=== PATIENT | male | born 1965 | race Caucasian/White ===

== ENCOUNTER 2024-07-05 05:46 | Emergency (ER) | payer BC, SELFPAY ==
--- NOTE | ~2024-07-05 | XR_ITS ---
EXAMINATION: XR CHEST CLINICAL INFORMATION: Chest pain COMPARISON: None available. TECHNIQUE: Frontal view of the chest was obtained. FINDINGS: There is no gross pneumothorax. Heart size is normal. Mild levoscoliosis of the thoracic spine with degenerative changes. No pleural effusion. No focal consolidation. XR/XR chest 1V IMPRESSION: No evidence of pneumonia. This study was presented today July 05, 2024 for interpretation. Stat results provided at this time as requested by referring provider.
--- NOTE | 2024-07-05 05:48 | ECG_ITS ---
Test Reason : CHEST PAIN Blood Pressure : / mmHG Vent. Rate : 103 BPM Atrial Rate : 103 BPM P-R Int : 152 ms QRS Dur : 096 ms QT Int : 356 ms P-R-T Axes : 077 092 065 degrees QTc Int : 466 ms Sinus tachycardia Rightward axis Borderline ECG No previous ECGs available Referred By: Generic ED Physician Electronically Signed By:Rigo Contreras
[2024-07-05 05:55] VITALS: BP 155/92; PULSE 102; RESP 20; TEMP 36.7; O2SAT 98; BMI 23.7
[2024-07-05 06:02] VITALS: PULSE 105
[2024-07-05 06:16] LABS: MANUAL DIFF FLAG NO
[2024-07-05 06:17] LABS: Basophils Absolute Auto 0.1 X10*3/uL (0.0-0.2); Eosinophils Absolute Auto 0.1 X10*3/uL (0.0-0.4); Eosinophils Percent Auto 1.6 % (0-4); Hematocrit 42.8 % (42.0-52.0); Hemoglobin 15.5 g/dl (14.0-18.0); Imm Gran Abs Auto 0.03 X10*3/uL (0.00-0.03); Imm Gran Pct Auto 0.5 % (0.0-0.4); Lymphocytes Absolute Auto 1.6 X10*3/uL (1.2-4.9); Lymphocytes Percent Auto 25.1 % (20-40); Mean Corpuscular HGB Conc 36.2 g/dl (31.0-36.0); Mean Corpuscular Hemoglobin 31.1 pg (27.0-33.0); Mean Corpuscular Volume 85.9 fL (80.0-98.0); Mean Platelet Volume 10.2 fL (9.4-12.4); Monocytes Absolute Auto 0.6 X10*3/uL (0.1-1.2); Neutrophils Absolute Auto 3.8 x10*3/uL (2.0-8.3); Neutrophils Percent Auto 61.8 % (45-73); Platelet Count 293 X10*3/uL (160-400); Red Blood Count 4.98 X10*6/uL (4.60-5.80); Red Cell Distribution Width 12.3 % (11.0-16.0); White Blood Count 6.2 X10*3/uL (4.8-10.8)
[2024-07-05 06:55] LABS: Alanine Aminotransferase 19 U/L (0-40); Albumin Level 4.5 g/dL (3.5-5.0); Alkaline Phosphatase 66 U/L (39-117); Anion Gap 17 (12-20); Aspartate Amino Transferase 17 U/L (5-37); Bilirubin Total 0.8 mg/dL (0.0-1.0); Blood Urea Nitrogen 7 mg/dL (9-16); Calcium 9.8 mg/dL (8.4-10.2); Carbon Dioxide 19 mmol/L (22-29); Chloride 107 mmol/L (96-108); Creatinine Clr Calc Pharmacy 102.7; Estimated Glomerular Filt Rate > 60; Glucose Random 135 mg/dL (60-115); Potassium 3.6 mmol/L (3.3-5.1); Sodium 139 mmol/L (135-145); Troponin-I High Sensitivity < 2.7 ng/L (<3.5-35.0)
--- NOTE | 2024-07-05 07:01 | ED.CHESTPAIN ---
HPI - Chest Pain General Chief Complaint: Chest Pain Stated Complaint: Chest pain Time Seen by Provider: 07/05/24 06:42 Source: patient Mode of arrival: ambulatory Limitations: no limitations History of Present Illness ED Provider: Radha ARGUELLO HPI narrative: This is a 59-year-old male currently a vape smoker with no known other medical history presenting to the emergency department for evaluation of episode of chest pain that occurred prior to arrival, he reports he was smoking his vape at the [facility] and having a few drinks afterwards he had a 12-15 second long episode of sharp left-sided chest pain associated with left upper extremity radiation, diaphoresis and overall feeling unwell. This resolved after 15 seconds and did not reoccur. He also describes very mild shortness of breath associated with the episode. No known personal or family cardiac history. No history of PE or DVT. At this time he denies any pain. Denies shortness of breath, nausea, vomiting, abdominal pain, jaw pain, headache, vision changes, dizziness and weakness. Related Data Allergies Allergy/AdvReac Type Severity Reaction Status Date / Time No Known Allergies Allergy Verified 07/05/24 05:58 Review of Systems Review of Systems: Yes all other systems are reviewed and are negative PMFSH Past Medical History Attestation statement: The following information was validated with the patient. Source: old records reviewed and nursing notes reviewed Social History Social History Alcohol intake: current Alcohol intake frequency: a few times a month Smoked in Last 30 Days: Yes Use of substances other than those prescribed or required for medical reasons: No Advance Directives: No Advance Directives Information Provided: Yes Do you have a plan to hurt others: No Plan Physical Exam Vital Signs: Vital Signs: Last Vital Signs Temp 98.1 F 07/05/24 05:55 Pulse 94 07/05/24 07:17 Resp 14 07/05/24 07:17 BP 140/80 H 07/05/24 07:17 Pulse Ox 97 07/05/24 07:17 O2 Del Method Room Air 07/05/24 07:17 BMI result Body Mass Index 23.7 vss Appearance: Alert.? Oriented X3.? No acute distress.? Head: Normocephalic, atraumatic, no step-offs or deformities Eyes: Pupils equal, round and reactive to light.? CVS: Normal heart rate and rhythm.? Pulses normal.? Respiratory: No respiratory distress.? Breath sounds normal.? Abdomen: Soft and nontender.? Skin: Skin warm and dry.? Normal skin color.? Normal skin turgor.? Extremities: No lower extremity edema.? No calf ttp. 5/5 strength to bilateral upper and lower extremities Back: No midline tenderness, no C-spine tenderness, full range of motion, no CVA tenderness bilaterally Neuro: Oriented X 3.? No motor deficit.? No sensory deficit. CN 2-12 intact Course Reevaluation(s) Reevaluation #1: CBC with no acute findings. Chemistry no acute findings requiring intervention. Trope negative x2. D-dimer negative with low suspicion for PE no indication for CTA. Patient is still having no pain. Feeling well. He tells me he will stop vaping. Will give him Cardiology follow-up. Vital signs stable and hemodynamically stable at time of discharge. Educated patient on diagnosis and treatment plan, answered all question, patient verbalizes understanding. At this time patient will be discharged home, advised to return with new or worsening symptoms. Educated on worrisome signs and symptoms and when to return. At this time I feel comfortable discharge home. 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 Now pain free. PE benign Hx and pe concerning for acs vs non cardiac related CP. Less likely PE, dissection, ARDS Plan- labs, imaging Differential Diagnosis Differential Diagnoses: The differential diagnosis associated with the presentation includes Hx and pe concerning for acs vs non cardiac related CP. Less likely PE, dissection, ARDS Admission/Observation Consideration of admission/observation: Escalation of care including admission/observation considered Unlikely Lab Data [facility] Lab Attestation statement: I reviewed the patient's lab results. 07/05/24 06:10 07/05/24 06:10 Labs: Lab Results 07/05/24 07/05/24 Range/Units 06:10 08:13 WBC 6.2 (4.8-10.8) X10*3/uL RBC 4.98 (4.60-5.80) X10*6/uL Hgb 15.5 (14.0-18.0) g/dl Hct 42.8 (42.0-52.0) % MCV 85.9 (80.0-98.0) fL MCH 31.1 (27.0-33.0) pg MCHC 36.2 H (31.0-36.0) g/dl RDW 12.3 (11.0-16.0) % Plt Count 293 (160-400) X10*3/uL MPV 10.2 (9.4-12.4) fL Immature Gran % (Auto) 0.5 H (0.0-0.4) % Neut % (Auto) 61.8 (45-73) % Lymph % (Auto) 25.1 (20-40) % [place] % (Auto) 10.0 (2-11) % Eos % (Auto) 1.6 (0-4) % Baso % (Auto) 1.0 (0-2) % Lymph # (Auto) 1.6 (1.2-4.9) X10*3/uL [place] # (Auto) 0.6 (0.1-1.2) X10*3/uL Eos # (Auto) 0.1 (0.0-0.4) X10*3/uL Baso # (Auto) 0.1 (0.0-0.2) X10*3/uL Abs Immat Gran (auto) 0.03 (0.00-0.03) X10*3/uL Absolute Neuts (auto) 3.8 (2.0-8.3) x10*3/uL Absolute Nucleated RBC 0.000 (0.0-0.012) X10*3/uL Nucleated RBC % (auto) 0.0 (0.0-0.2) /100WBC D-Dimer High Sensitivty 205 NG/ML Sodium 139 (135-145) mmol/L Potassium 3.6 (3.3-5.1) mmol/L Chloride 107 (96-108) mmol/L Carbon Dioxide 19 L (22-29) mmol/L Anion Gap 17 (12-20) BUN 7 L (9-16) mg/dL Creatinine 0.85 (0.5-1.4) mg/dL Estim Creat Clear Calc 102.7 Estimated GFR > 60 Random Glucose 135 H (60-115) mg/dL Calcium 9.8 (8.4-10.2) mg/dL Total Bilirubin 0.8 (0.0-1.0) mg/dL AST 17 (5-37) U/L ALT 19 (0-40) U/L Alkaline Phosphatase 66 (39-117) U/L Troponin I High Sens < 2.7 < 2.7 (<3.5-35.0) ng/L Total Protein 7.0 (6.5-8.0) g/dL Albumin 4.5 (3.5-5.0) g/dL Chronic Conditions Patient?s care impacted by: Other (smoked vapes ) Critical Care Time Critical Care Time Critical Care Time: No Discharge Plan Discharge Clinical Impression: Chest pain Patient Disposition: Home, Self-Care Instructions: Chest Pain (DC), Chest Wall Pain (ED) Additional Instructions: Take your medications as prescribed. If you were prescribed antibiotics today, it is important that you take your medication to their entirety, do not skip any doses, do not finish them early. Follow-up with your primary care provider this week. Return to the emergency department with new or worsening symptoms. Such as fevers, chills, chest pain, shortness of breath, nausea, vomiting, dizziness, headache, vision changes, lethargy In case of emergency call 911 You can follow-up with cardiology outpatient. Referrals: Physician,Unknown J [Primary Care Provider] - [address] [facility] [Provider Group] - 2 days Stand Alone Forms: Work/School Release Print Language: German
--- NOTE | 2024-07-05 07:15 | PC.NURSE ---
Care of Pt assumed at change of shift. VSS, A&Ox3 and pleasant. Pt is resting comfortably on stretcher reviewing emails on his phone. No complaints offered at this time. Awaiting follow up trop level.
[2024-07-05 07:17] VITALS: BP 140/80; PULSE 94; RESP 14; O2SAT 97
[2024-07-05 08:27] LABS: D Dimer High Sensitivity 205 NG/ML
[2024-07-05 08:45] LABS: Troponin-I High Sensitivity < 2.7 ng/L (<3.5-35.0)
[2024-07-05 09:08] VITALS: BP 140/80; PULSE 94; RESP 14; TEMP -17.7; TEMP 0; O2SAT 97
== END 2024-07-05 09:08 | disposition home or self-care (01) ==
PROVIDERS: Physician Assistant; Emergency Provider Emergency Medicine
DX: R07.89 Other chest pain (principal); M79.602 Pain in left arm; F17.290 Nicotine dependence, other tobacco product, uncomplicated; Z79.899 Other long term (current) drug therapy
CPT/HCPCS: 36415; 71045; 80053; 84484; 85025; 85379; 93005; 99284; 99285

== ENCOUNTER → 2024-07-05 05:48 | Outpatient (BNV) | payer BC, SELFPAY | PROVIDERS: Emergency Provider Emergency Medicine; Visit Provider Internal Medicine Cardiovascular Disease | DX: R07.9 Chest pain, unspecified (principal) | CPT/HCPCS: 93010 ==

== ENCOUNTER 2025-11-09 07:32 | Outpatient (AMB) | payer BC, SELFPAY ==
[2025-11-09 07:33] VITALS: BP 116/70; PULSE 82; TEMP 36.5; O2SAT 98; BMI 24.7
--- NOTE | 2025-11-09 07:33 | MHC.OFFWIV ---
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 Patient Tobacco Use Status: Current someday Tobacco user Allergies No Known Allergies Allergy (Verified 11/09/25 07:42) Do you need a note to return to daycare/school/sports/work: Yes HPI HPI Comments History of Present Illness Details This is a 60-year-old male with a past medical history of hypertension and BPH presenting for influenza testing. 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 Patient states that his symptoms have significantly improved and he tested negative for COVID-19 last night and this morning. Patient was going to return to work today however his personal care home administrator asked him to be tested for influenza due to an influenza outbreak at the [employer]. Patient states that he did have a fever yesterday however has not had a fever since that time has not taken any antipyretic medications. At this time the patient denies having any cough, shortness breath, sinus congestion, otalgia or pharyngitis. [facility] Social History Alcohol intake: current Alcohol intake frequency: a few times a month Patient Tobacco Use Status: Current someday Tobacco user Review of Systems Const All systems reviewed & are unremarkable except as noted in HPI and below Denies body aches, Denies chills, Denies fatigue, Denies fever(s) and Denies malaise Eyes Reports no additional complaints ENT Reports no additional complaints Card Reports no additional complaints Resp Reports no additional complaints GI Reports no additional complaints Reports no additional complaints Musc Reports no additional complaints Skin/Breast Reports system reviewed and no additional complaints, except as documented Neuro Reports no additional complaints Psych Reports no additional complaints Endo Reports no additional complaints and Denies fatigue Amauri/Lymph Reports no additional complaints Aller/Immun Reports no additional complaints Physical Exam Vital Signs: BMI result Body Mass Index 24.7 Const General: cooperative, healthy appearing, comfortable, no acute distress, alert, awake and Physically active; No lethargic Nutritional Appearance: average body habitus Orientation/consciousness: patient oriented x3 and No lethargic Limitations: no limitations HEENT Head: Yes normal to inspection and Yes normocephalic Ears: hearing grossly normal bilaterally, TM's normal bilaterally and EAC's normal General nose exam: Normal external nose present Face and sinus: Yes normal facial exam Mouth: Normal oral and palatal mucosa present, oropharynx normal and moist mucous membranes Throat: Yes posterior oropharynx normal, No posterior oropharynx abnormal and No postnasal drainage Eyes General: appearance normal, both eyes and all related structures Neck Lymphatic: no lymphadenopathy noted Resp Effort & Inspection: normal respiratory effort and able to speak in complete sentences Auscultation: clear to auscultation bilaterally Cardio Rate: regular rate Rhythm: regular rhythm Skin General skin exam: no rashes or lesions noted Neuro General: patient oriented x3 Psych Appearance: grossly normal Mental Status: mental status grossly normal Insight: Good insight present (Psych) Judgement: Good judgement present (Psych) Assessment & Plan Assessment & Plan (1) Acute upper respiratory infection: Comment: Patient is well-appearing, afebrile and in no acute distress. Viral panel testing is pending at this time. Code(s): J06.9 - Acute upper respiratory infection, unspecified Plan: Patient is given a work note to return tomorrow which will be amended if viral panel is positive for any acute pathology. Orders: Orders SARS-CoV2/FLU/RSV Today J06.9 - Acute upper respiratory infection, unspecified Coding Level of Care Code New Pt Level 3 (38607) Diagnoses Acute upper respiratory infection J06.9 Time Spent (min) 20
--- OUTSIDE RECORDS SUMMARY | 2025-11-09 07:44 | XMS_ITS | Clinical Summary ---
Author Organization [facility] Address [address] [place] [phone] Phone Care Team Providers Care Scaler Packer Name Role Phone Perez Ace MD Primary Care Provider [phone] Allergies No known active allergies Medications clotrimazole (LOTRIMIN) 1 % creamIndications :Jock itch Apply topically 2 (two) times a day. 45 g 2 10/11/20 24 Active omeprazole (PRILOSEC) 40 MG capsule TAKE 1 CAPSULE BY MOUTH 1/2 TO 1 HOUR BEFORE MORNING AND EVENING MEAL 01/04/20 25 Active valACYclovir (VALTREX) 1000 MG tablet Take 1 tablet (1,000 mg total) by mouth daily. 90 tablet 3 04/06/20 25 Active turmeric (CURCUMIN MISC) by Miscellaneous route. Active therapeutic multivitamin tablet Take 1 tablet by mouth daily. Active ascorbic acid (VITAMIN C ORAL) Take by mouth. Active ZINC ORAL Take by mouth. Activ e hydrocortisone 2.5 % creamIndications :Internal hemorrhoids Apply topically 2 (two) times a day. 28 g 2 06/24/20 25 Active emtricitabine-te nofovir DF (TRUVADA) 200-300 mg per tablet Take 1 tablet by mouth every morning. 90 tablet 10/04/20 25 Active tadalafiL (CIALIS) 5 MG tabletIndication s:Benign prostatic hyperplasia without lower urinary tract symptoms Take 1 tablet (5 mg total) by mouth every morning. 90 tablet 10/03/20 25 Active doxycycline monohydrate (MONODOX) 100 MG capsuleIndicatio ns:Screening examination for STI Take 2 capsules (200 mg total) by mouth as needed (Post exposure prophylaxis within 72 hours of sexual contact). 30 capsule 10/03/20 25 Active Active Problems Problem Noted Date Diagnosed Date GERD (gastroesophageal reflux disease) 5 Benign prostatic hyperplasia without lower urinary tract symptoms 10/11/2024 Internal hemorrhoids 10/11/2024 Encounters Date Type Department Care Team Description 09/06/2025 2:00 PM EDT Office Visit [facility] [address] [place] [address] Perez Ace MD Sebaceous cyst (Primary Dx) 08/18/2025 Procedure Pass [facility] Endoscopy Admitting Dept Virtual Department [address] [place] [id number] 08/18/2025 Hospital Encounter [facility] Endoscopy Admitting Dept Virtual Department [address] [place] [id number] Bryce Dykes MD from Last 3 Months Social History Tobacco Use Types Packs/Day Years Used Date Smoking Tobacco: Former Cigarettes Q uit: 2004 Smokeless Tobacco: Never Tobacco Cessation:Ready to Q uit: Not Asked; Counseling Given: Not Answered Alcohol Use Standard Drinks/Week Comments Yes 2 (1 standard drink = 0.6 oz pur e alcohol) Child or Family Care Answer Date Record ed Do you have problems with on e of the following making it difficult for you to work, study, or receive health care? No 10/11/2024 Education Answer Date Recorded Are you interested in help w ith more adult education (for example, completing high school, GED, job training, learning the Dutch language, technical skills, or developing parenting skills)? No 10/11/2024 Are you concerned about learning? Not on file 10/11/2024 No 10/11/2024 Yes 10/11/2024 Food Answer Date Recorded Within the past 6 months we worried whether our food would run out before we got money to buy more. Never True 10/11/2024 Within the past 6 months the food we bought just didn't last and we didn't have enough money to get more. Never True Residential Stability Answer Date Recor ded What is your housing situation today? I have trent sing 10/11/2024 How many times have you moved in the past 12 mon ths? One time 10/11/2024 Paying for Meds Answer Date Recorded Do you have trouble paying for medicines? No 10/11/2024 Paying Utility Bills Answer Date Record ed Do you have trouble paying your heating or elect ricity bill? No 10/11/2024 Transportation Answer Date Recorded Has the lack of transportati on kept you from medical appointments or from getting medications? No 10/11/2024 Digital Access Answer Date Recorded No 10/11/2024 Yes 10/11/2024 Do you have reliable internet access at home? Ye s 10/11/2024 Do you have a device (e.g., phone, tablet, computer) with a working camera? Yes 10/11/2024 Intimate Partner Violence Answer Date R ecorded Are you denied basic needs s uch as food, clothing, or medical care? No 06/07/2025 In the past 12 months have y ou been in a relationship with a person who hurts, threatens, or tries to control you? No 06/07/2025 Are you denied basic needs s uch as food, clothing, or medical care? No 06/07/2025 In the past 12 months have y ou been in a relationship with a person who hurts, threatens, or tries to control you? No 06/07/2025 Sex and Gender Information Value Date Recorded Sex Assigned at Not on file Legal Sex Male 3:04 PM EDT Gender Identity Not on file Sexual Orientation Not on file Last Filed Vital Signs Vital Sign Reading Time Taken Comments Blood Pressure 110/78 09/06/2025 2:01 PM EDT Pulse 68 09/06/2025 2:01 PM EDT Temperature 35.9 C (96.7 F) 06/07/2025 10:07 AM EDT Respiratory Rate 17 06/07/2025 10:16 AM EDT Oxygen Saturation 97% 09/06/2025 2:01 PM EDT Inhaled Oxygen Concentration - - Weight 84.4 kg (186 lb) 09/06/2025 2:01 PM EDT Height 182.9 cm (6') 09/06/2025 2:01 PM EDT Body Mass Index 25.23 09/06/2025 2:01 PM EDT Plan of Treatment Upcoming Encounters Date Type Department Care Team (Late st Contact Info) Description 12/22/2025 2:30 PM EST Office Visit [facility] [address] [place] [address] Perez Ace MD [address] [facility], [address] [place] [address] Health Maintenance Due Date Last Done Comments Adult Td,Tdap Booster 1965 HEPATITIS C SCREENING 1983 COLOGUARD 2010 COLONOSCOPY 2010 COLORECTAL CANCER SCREENING 2010 FIT TEST 2010 FOBT 2010 SIGMOIDOSCOPY 2010 VIRTUAL COLONOSCOPY 2010 PNEUMOCOCCAL VACCINES (50+ y ears) (1 of 1 - PCV) 2015 ZOSTER VACCINES (1 of 2) 2015 INFLUENZA VACCINE (#1) 2025 COVID-19 VACCINE (1 - 2024-2 6 season) 2025 DEPRESSION SCREENING 10/11/2025 10/11/2024 SMOKING Hx and SMOKELESS TOB ACCO SCREENING 06/07/2026 06/07/2025 SCREENING FOR DIABETES 10/11/2027 10/11/2024 LIPID PANEL 10/11/2029 10/11/2024 RSV VACCINE (1 - 1-dose 75+ series) 2040 HIV ONE-TIME SCREENING (18-6 5 YEARS) Completed 10/11/2024 HEPATITIS A VACCINES Aged Out No long er eligible based on patient's age to complete this topic HIB VACCINES Aged Out No longer eligi ble based on patient's age to complete this topic MENINGOCOCCAL VACCINES (ACWY) Aged Out No longer eligible based on patient's age to complete this topic MENINGOCOCCAL VACCINES (B) Aged Out N o longer eligible based on patient's age to complete this topic Medical Devices Not on file Procedures Procedure Name Priority Date/Time Associated Diagnosis Comments LIPID PANEL Routine 10/11/2024 2:25 PM EST Annual physical exam from Last 3 Months or Most Recently Relevant to Health Maintenance Results * (ABNORMAL) Lipid panel (10/11/2024 2:25 PM EST) HDL 46 mg/dL [facility] Comment: Interpretation <40 mg/dL: Low HDL cholesterol (major risk factor for CHD) Greater than or equal to 60 mg/dL: High HDL cholesterol ( negative risk factor for CHD) HDL - cholesterol is affected by a number of factors, e.g. smoking, excerise, hormones, sex and age. CHOLESTEROL 193 0 - 240 mg/dL [facility] TRIGLYCERIDES 185(H) 30 - 160 mg/dL [facility] LDL 110 50 - 129 mg/dL [facility] Comment: LDL levels in terms of risk for coronary heart disease: <100 mg/dL: Optimal 100-129 mg/dL: Near or above optimal 130-159 mg/dL: Borderline high 160-189 mg/dL: High >190 mg/dL: Very High CARDIAC RISK RATIO 4.2 3.4 - 5.0 C [facility] Blood 10/11/2024 2:25 PM EST 10/11/2024 2:28 PM EST us Perez Ace MD LAB BLOOD BKR ORDERABLES Final R esult [facility] [address] [place], [place] [phone] from Last 3 Months or Most Recently Relevant to Health Maintenance Insurance [facility] [place] [address] [place] [address] [place] [address] [facility] Care Teams Scaler Packer Relationship Specialty Start Date End Date Perez Ace MD [address] [place] [address], [address] [place] [address] [email or web address] PCP - General Family Medicine 10/03/25 Additional Source Comments The information contained in this document represents components of the legal health record. It is not the complete legal health record.[facility]
--- OUTSIDE RECORDS SUMMARY | 2025-11-09 07:45 | XMS_ITS | Encounter Summary ---
Author Organization [facility] Address [address] [place] [phone] Phone Care Team Providers Care Shop Supervisor Name Role Phone Perez Ace MD Primary Care Provider [phone] Pcp, Unknown Primary Care Provider Unavailabl e Perez Ace MD Primary Care Provider [phone] Encounter Details Date Type Department Care Team (Late st Contact Info) Description 06/07/2025 Procedure Pass [facility] Endoscopy Admitting Dept Virtual Department [address] [place] [address] Social History Tobacco Use Types Packs/Day Years Used Date Smoking Tobacco: Former Cigarettes Q uit: 2004 Smokeless Tobacco: Never Alcohol Use Standard Drinks/Week Comments Yes 2 [...] high school, GED, job training, learning the Italian language, technical skills, or developing parenting skills)? [...] your housing situation today? I have trent liu 10/11/2024 How many times have you moved in the past 12 fri ths? One time 10/11/2024 Paying for Meds [...] on file Sexual Orientation Not on file documented as of this encounter Functional Status * Calculated C-SSRS Risk Score (Lifetime/Recent) Answer Date of Assessment Author No Risk Indicated 06/07/2025 9:38 AM EDT Felicita Campa RN * [place] Suicide Severity Rating Scale (Screener/Recent Self-Report) Question Answer Date of Assessment Author 1. Wish to be (Past 1 Month) No 06/07/2025 9:38 AM EDT Felicita Campa Ei, RN 2. Non-Specific Active Suicidal Thoughts (Past 1 Month) No 06/07/2025 9:38 AM EDT Felicita Campa Ei, RN 6. Suicidal Behavior (Lifetime) No 06/07/2025 9:38 AM EDT Felicita Campa Ei, HERMAN documented as of this encounter Plan of Treatment Upcoming Encounters Date Type Department Care Team (Late st Contact Info) Description 12/22/2025 2:30 PM EST Office Visit [facility] [address] [place] [address] Perez Ace MD [address] [address] [email or web address] documented as of this encounter Visit Diagnoses Not on filedocumented in this encounter Additional Health Concerns Assessment Noted Time PHQ-2 Depression Total Score: 0 10/11/20 24 1:14 PM EST documented as of this encounter Care Teams Shop Supervisor Relationship Specialty Start Date End Date Perez Ace MD [address] [place] [phone] PCP - General Family Medicine 10/11/24 09/21/25 Pcp, Unknown PCP - General 09/22/25 10/02/25 Perez Ace MD [address] [place] [phone] PCP - General Family Medicine 10/03/25 documented as of this encounter Additional Source Comments The information contained in this document represents components of the legal health record. It is not the complete legal health record.[facility]
--- OUTSIDE RECORDS SUMMARY | 2025-11-09 07:45 | XMS_ITS | Encounter Summary ---
Author Organization [facility] Address [address] [place] [address] Phone Care Team Providers Care Hematology Nurse Name Role Phone Perez Ace MD Primary Care Provider [phone] Pcp, Unknown Primary Care Provider Unavailabl e Perez Ace MD Primary Care Provider [phone] Encounter Details Date Type Department Care Team (Late st Contact Info) Description 08/18/2025 Procedure Pass [facility] Endoscopy Admitting Dept Virtual Department [address] [place] [address] Social History Tobacco Use Types Packs/Day Years [...] high school, GED, job training, learning the Mongolian language, technical skills, or developing parenting skills)? [...] on file documented as of this encounter Plan of Treatment Upcoming Encounters Date Type Department Care Team (Late st Contact Info) Description 12/22/2025 2:30 PM EST Office Visit [facility] Medicine [address] [place] [address] Perez Ace MD [address] [place] [address] [email or web address] documented as of this encounter Visit Diagnoses Not on filedocumented in this encounter Additional Health Concerns Assessment Noted Time PHQ-2 Depression Total Score: 0 10/11/20 24 1:14 PM EST documented as of this encounter Care Teams Hematology Nurse Relationship Specialty Start Date End Date Perez Ace MD [address], [facility] [address] [place] [address] PCP - General Family Medicine 10/11/24 09/21/25 Pcp, Unknown PCP - General 09/22/25 10/02/25 Perez Ace MD [address], [facility] [address] [place] [address] [email or web address] PCP - General Family Medicine 10/03/25 documented as of this encounter Additional Source Comments The information contained in this document represents components of the legal health record. It is not the complete legal health record.[facility]
--- OUTSIDE RECORDS SUMMARY | 2025-11-09 07:45 | XMS_ITS | Encounter Summary ---
Author Organization [facility] Address [address] [place] [address] Phone Care Team Providers Care Scalp Treatment Specialist Name Role Phone Perez Ace MD Primary Care Provider [phone] Pcp, Unknown Primary Care Provider Unavailabl e Perez Ace MD Primary Care Provider [phone] Reason for Visit * Auth/Cert (Routine) Specialty Diagnoses / Procedures Referred By Florentino t Referred To Contact Diagnoses egd Procedures WV ESOPHAGOGASTRODUODENOSCOPY TRANSORAL DIAGNOSTIC WV EDG TRANSORAL BIOPSY SINGLE/MULTIPLE WV EGD ABLATE TUMOR POLYP/LESION W/DILATION& WIRE ESOPHAGOGASTRODUODENOSCOPY Referral ID Status Reason Start Date Expiration Date Visits Re quested Visits Authorized [id number] 1 1 Encounter Details Date Type Department Care Team (Late st Contact Info) Description 08/18/2025 Hospital Encounter [facility]oscopy Admitting Dept Virtual Department [address] [place] [address] Bryce Dykes MD [address] [place] [address] [email or web address] Social History Tobacco Use Types Packs/Day Years Used Date Smoking Tobacco: Former Cigarettes Q uit: 2005 Smokeless Tobacco: Never Alcohol Use Standard Drinks/Week [...] high school, GED, job training, learning the [place] language, technical skills, or developing parenting skills)? [...] Description 12/22/2025 2:30 PM EST Office Visit [facility] Medicine [address] [facility] [place] [address] Perez Ace MD [address] [address] [place] [address] [email or web address] documented as of this encounter Visit Diagnoses Not on filedocumented in this encounter Additional Health Concerns Assessment Noted Time PHQ-2 Depression Total Score: 0 10/11/20 1:14 PM EST documented as of this encounter Care Teams Scalp Treatment Specialist Relationship Specialty Start Date End Date Perez Ace MD [address] [facility] [address] [place] [address] [email or web address] PCP - General Family Medicine 10/11/24 09/21/25 Pcp, Unknown PCP - General 09/22/25 10/02/25 Perez Ace MD [address] [address] [place] [address] [email or web address] PCP - General Family Medicine 10/03/25 documented as of this encounter Additional Source Comments The information contained in this document represents components of the legal health record. It is not the complete legal health record.[facility]
== END 2025-11-09 08:03 | disposition home or self-care (01) ==
PROVIDERS: Visit Provider Physician Assistant
DX: J06.9 Acute upper respiratory infection, unspecified (principal)

== ENCOUNTER 2025-11-09 07:32 | Outpatient (REF) | payer BC, SELFPAY ==
[2025-11-09 11:25] LABS: Resp Syncy Virus RNA Qual PCR NEGATIVE (Negative); SARS COV2 PCR INHOUSE NEGATIVE (Negative)
== END 2025-11-09 07:33 | disposition home or self-care (01) ==
LOC: HO.LNP 07:32
PROVIDERS: Visit Provider Physician Assistant
DX: J06.9 Acute upper respiratory infection, unspecified (principal)
CPT/HCPCS: 87637